=== PATIENT | male | born 2000 | race Asian ===

== ENCOUNTER 2018-06-12 01:30 | Emergency (ER) | payer OTHER ==
[~2018-06-12] VITALS: Ht 170.2 cm; Wt 65.9 kg
[2018-06-12 02:57] VITALS: BP 136/76
== END 2018-06-12 03:00 | disposition home or self-care (01) ==
LOC: EMS 01:30
DX: S00.86XA Insect bite (nonvenomous) of other part of head, initial encounter (principal); W57.XXXA Bitten or stung by nonvenomous insect and other nonvenomous arthropods, initial encounter; Y93.89 Activity, other specified; Y92.89 Other specified places as the place of occurrence of the external cause; Y99.8 Other external cause status
CPT/HCPCS: 99283